=== PATIENT | male | born 1965 | race Caucasian/White ===

== ENCOUNTER 2024-04-22 15:29 | Observation (INO) ==
--- NOTE | 2024-04-22 16:01 | Emergency Department Note ---
Impression & Plan Nausea vomiting and diarrhea, Acute dehydration, Hypothermia, Bradycardia, Elevated [facility] ED Provider Note CHIEF COMPLAINT: Illness HISTORY OF PRESENTING ILLNESS: This 59-year-old male patient presents to the emergency department via EMS with his mother for evaluation of nausea, vomiting, and diaphoresis. Symptoms started around 12 or 1 pm today. He denies any chest pain, shortness of breath, or abdominal pain. He denies a headache, but does feel dizzy and confused. He was diaphoretic upon EMS arrival. The patient states that he just feels very strange all over. He states that he has not voided today. The patient feels like he is severely dehydrated. He states that he worked out at the gym for about 1 hour yesterday and did not drink a lot. He did have some diarrhea yesterday, but none today. The patient states that he ate some rice that had been in the fridge for at least 1 week that tasted bad and he is worried about food poisoning. No fevers, but has been sweating a lot. The patient recently traveled to [facility] to visit family. No known ill contacts. No known tick bites. He was also seen by a family doctor at the [facility] on 04/20/24 with a "full physical panel" performed that was normal per patient. The patient is in town visiting his mother. The patient's blood sugar upon arrival was 133. The patient's rectal temp upon arrival was 35.6 C. REVIEW OF SYSTEMS: See HPI for pertinent positives and pertinent negatives. ALLERGIES: NKDA MEDICATIONS: None PAST MEDICAL HISTORY: Denies pertinent past medical or pertinent past surgical history PHYSICAL EXAM: VITALS: Vitals are noted on the nurse's note and reviewed by myself. GENERAL: No acute distress, but the patient does appear ill. SKIN: No obvious abnormal rashes or skin lesions. The skin is not mottled. The skin is warm. He was not diaphoretic on my exam, but he appeared like he had been diaphoretic recently. He is slightly pale. Capillary reflex less than 2 seconds. HEAD: No scalp tenderness. No step-offs felt. EARS: Bilateral external auditory canals clear. Bilateral tympanic membranes pearly martinez without erythema or effusion. No hemotympanum. No yee sign. No mastoid tenderness. EYES: Pupils equal round and reactive to light and accommodation. Conjunctivae without injection, sclerae without icterus. Extraocular movements intact without pain. No nystagmus. NOSE: Patent, turbinates without inflammation or discharge. No sinus tenderness. No septal hematoma or bleeding. FACE: No facial bone tenderness. Full range of motion of the jaw without tenderness. No facial droop. MOUTH: Mucous membranes moist. Uvula midline. Airway patent. Tongue does not deviate. NECK: Supple without nuchal rigidity. Negative Kernig and Brudzinski. Cervical spine is nontender. Full range of motion of the neck without tenderness and normal strength. HEART: Regular rate and rhythm without murmurs gallops or rubs. LUNGS: Clear to auscultation bilaterally without wheezes, rales or rhonchi. No retractions or accessory muscle use. No chest wall tenderness. ABDOMEN: Positive bowel sounds x 4. Normal tympanic percussion. Soft, nontender, without masses or organomegaly. No guarding or rebound tenderness. No focal right lower quadrant or left lower quadrant tenderness. MUSCULOSKELETAL: No tenderness of the thoracic or lumbar spine or paraspinal muscles. Full range of motion of the bilateral upper and lower extremities. Strength 5/5 and equal bilaterally in the upper and lower extremities. Peripheral pulses 2+ and equal in the bilateral upper and lower extremities. NEURO: Patient was alert and oriented to person place and time, but he was slow to answer and seemed a bit off. However, I do not know his baseline. His mother states that he seems slower to answer than normal. The patient was able to answer questions appropriately and had a normal mental status exam despite the slowness to answer. No slurred speech. No trouble finding words. Normal sensation to light and sharp touch of the upper and lower extremities. DIFFERENTIAL DIAGNOSIS: Dehydration, rhabdomyolysis, acute kidney injury, sepsis, CVA, TIA, brain tumor, intracranial bleed, acute intracranial process, WA, PE, pneumonia, bowel obstruction, food poisoning, bacterial gastroenteritis, viral gastroenteritis, UTI, viral illness, or others. ED COURSE AND MEDICAL DECISION MAKING: HISTORY FROM INDEPENDENT HISTORIAN: Additional history was obtained from the patient's mother. MONITOR: Continuous air conditioning service technician: Order was placed for continuous air conditioning service technician. Patient was placed on the air conditioning service technician and continuous pulse ox. Patient was noted to be in normal sinus bradycardia at an initial rate of 55 bpm per my interpretation. EKG: EKG was interpreted by myself as sinus bradycardia at [address] with [address] acute [address] or T wave changes. MEDICATIONS GIVEN: 2 L normal saline solution bolus. Zofran 4 mg IV. INTERPRETATION OF LABS: I interpreted the labs with full lab results as below in the lab section of this note. [id number] glucose on arrival was 133. CBC without leukocytosis, anemia, or thrombocytopenia. Coags were normal. D-dimer was normal. Anion gap 13, glucose 164, and total bilirubin 1.2, but CMP otherwise normal. CPK normal. Lipase normal. Procalcitonin normal. Magnesium normal. TSH normal. Lactate was elevated at 3.0, but improved to 1.8 on repeat. High-sensitivity troponin x 2 were normal. Urinalysis with 3+ ketones, but no evidence for infection. Urine drug screen was positive for marijuana, but otherwise negative. Respiratory bio fire was negative. Lyme disease screen was negative. Anaplasma and Babesia smear were negative with DNA PCR still pending. Blood cultures are pending. INTERPRETATION OF IMAGING: Imaging studies were interpreted by myself and read by radiology as per the imaging section of this note. Chest x-ray is negative for pneumonia or other acute cardiopulmonary etiology. KUB was negative for bowel obstruction or other acute abnormalities. CT scan of the head without contrast was negative for acute intracranial abnormality. CONSULTATIONS: On-call hospitalist MDM SUMMARY: I examined the patient. The patient presented to the ER via ambulance for nausea, vomiting, and diaphoresis. The patient is also hypotensive and bradycardic. He was diaphoretic for EMS, but no longer diaphoretic in the ER. However, he does appear ill. [id number] glucose was 133. The patient is from out of town and visiting his mother. He did eat some questionable rice and had some diarrhea yesterday with vomiting today. The patient worked out at the gym yesterday and did not drink a lot of water and feels he is dehydrated from his workout, diarrhea, and vomiting. He denies any chest pain, shortness of breath, or abdominal pain. No fevers or URI symptoms. An IV lock was placed and labs were drawn. The patient was given 1 L normal saline solution bolus initially, but was given a second liter of normal saline solution bolus after his elevated lactate level and 3+ ketones in his urine were noted. He was given Zofran 4 mg IV with good improvement of his nausea and vomiting. He did not have a bowel movement while in the emergency department for stool sample. EKG showed sinus bradycardia, but no other acute abnormalities. High- sensitivity troponin x 2 were normal. D-dimer was normal. Chest x-ray and KUB were unremarkable. CT scan of the head without contrast was negative. Lactate was initially elevated at 3.0, but improved to 1.8 after the IV fluids. White blood cell count is normal and procalcitonin normal. Remainder of the laboratory studies as above without significant abnormalities. Respiratory bio fire was negative. Urine had 3+ ketones, but no evidence for infection. Tickborne testing negative so far with confirmatory testing pending. No source for infection on workup at this time so antibiotics were held. The patient did remain bradycardic and hypothermic and he required warmed IV fluids. His rectal temperature finally improved after the warmed IV fluids and his bradycardia resolved once he became normothermic. The patient's symptoms may be secondary to food poisoning from the questionable rice versus a viral/bacterial gastroenteritis given the vomiting and diarrhea. I suspect dehydration is playing a part in his symptoms as well. However, definitive cause has not been isolated at this time. The patient has been traveling out of the country recently. I had a meaningful discussion about this patient with Dr. Caro who agrees with my assessment and the treatment plan. Given the patient's presentation, elevated lactate level, bradycardia, and hypothermia, we feel the patient requires admission for further evaluation and treatment. I spoke with the on- call hospitalist who agreed to admit the patient for further management. Please refer to their dictation for further details. The patient's care was transferred in stable condition. DIAGNOSIS: Nausea, vomiting, and diarrhea Dehydration Hypothermia and bradycardia Elevated lactate Attending Attestation: I Jorge Caro MD I have reviewed the advanced practitioner's documentation and agree with the plan of care. I accept the responsibility for the associated risk of managing the patient. Past Med/Surg History Problem List (Updated 04/23/24 @ 00:28 by Beverly Meadows PA-C) Elevated [facility] (Acute) Bradycardia (Acute) Hypothermia (Acute) Acute dehydration (Acute) Nausea vomiting and diarrhea (Acute) Gastroenteritis Social History Smoking Status: Never smoker Hx Alcohol Use: Yes Alcohol type: beer Hx Substance Use: No Communication Ability: Effective Beliefs That Will Affect Care: None Current Living Situation: Alone Other Information That Helps Us Care for You: No Feels Safe at Home: Yes Safety Concerns: Feels Safe At This Time Assistive Devices: None Allergies Allergies Allergy/AdvReac Type Severity Reaction Status Date / Time No Known Allergies Allergy Verified 04/22/24 17:35 Home Meds Home Medications Medication Instructions Recorded Confirmed minoxidil 5 % topical solution 1 ml topical DIRECTED PRN 04/22/24 04/22/24 DIRECTED Results & Data (ED) Vital Signs Vital Signs - 24 hr 04/22/24 15:35 04/22/24 15:38 04/22/24 15:39 Temperature 35.6 C L Temperature Source Rectal Pulse Rate 56 L 54 L 62 Pulse Rate [Apical] Respiratory Rate 16 12 Respiratory Effort / Characteristics Non-Labored Spontaneous Respiratory Depth Normal Blood Pressure 130/87 130/87 Blood Pressure [Left Arm] Blood Pressure Mean 101 101 Blood Pressure Mean [Left Arm] Blood Pressure Position Sitting Pulse Oximetry 100 99 Oxygen Delivery Method Room Air Room Air Sepsis Recent Fever Within 48 Hours No Sepsis New/Unexplained Change in Mental Status N/A Sepsis Action Taken by Nursing No Action Required 04/22/24 17:00 04/22/24 17:26 04/22/24 18:08 Temperature 35.9 C L 35.9 C L Temperature Source Axillary Rectal Pulse Rate 48 L Pulse Rate [Apical] Respiratory Rate 16 Respiratory Effort / Characteristics Respiratory Depth Blood Pressure 126/76 Blood Pressure [Left Arm] Blood Pressure Mean 92 Blood Pressure Mean [Left Arm] Blood Pressure Position Pulse Oximetry 99 Oxygen Delivery Method Room Air Sepsis Recent Fever Within 48 Hours Sepsis New/Unexplained Change in Mental Status Sepsis Action Taken by Nursing 04/22/24 19:19 04/22/24 19:29 Temperature 36.8 C Temperature Source Oral Pulse Rate 68 Pulse Rate [Apical] 70 Respiratory Rate 19 Respiratory Effort / Characteristics Respiratory Depth Blood Pressure Blood Pressure [Left Arm] 119/79 Blood Pressure Mean Blood Pressure Mean [Left Arm] 92 Blood Pressure Position Pulse Oximetry 95 Oxygen Delivery Method Room Air Sepsis Recent Fever Within 48 Hours Sepsis New/Unexplained Change in Mental Status Sepsis Action Taken by Nursing Laboratory Data 04/23/24 05:31 04/23/24 05:31 Lab Results 04/22/24 04/22/24 04/22/24 Range/Units 15:37 15:45 16:18 WBC 9.17 (4.8-10.8) K/ul RBC 5.21 (4.70-6.10) M/uL Hgb 16.5 (14.0-18.0) g/dl Hct 47.1 (42.0-52.0) % MCV 90.4 (80.0-100.0) fL MCH 31.7 (25.0-34.0) pg MCHC 35.0 (32.0-36.0) g/dL RDW Std Deviation 41.2 (36.4-46.3) fL RDW Coeff of Danny 12.6 (11.5-14.5) % Plt Count 140 (130-400) K/uL MPV 11.9 (9.4-12.4) fL Immature Gran % (Auto) 0.4 % Neut % (Auto) 79.2 % Lymph % (Auto) 13.0 % Grayson % (Auto) 6.2 % Eos % (Auto) 1.0 % Baso % (Auto) 0.2 % Neut # (Auto) 7.26 H (1.40-6.50) K/uL Lymph # (Auto) 1.19 L (1.20-3.40) K/uL Grayson # (Auto) 0.57 (0.11-0.59) K/uL Eos # (Auto) 0.09 (0.00-0.50) K/uL Baso # (Auto) 0.02 (0.00-0.20) K/uL Immature Gran # (Auto) 0.04 (0.01-0.20) K/uL PT 10.6 (9.0-12.0) Seconds INR 1.0 (0.9-1.1) APTT 24 (21-31) Seconds PTT Ratio 0.9 D-Dimer 410 (0-500) ug/L FEU Sodium 138 (136-145) mmol/L Potassium 3.5 (3.5-5.1) mmol/L Chloride 103 (98-107) mmol/L Carbon Dioxide 22 (21-32) mmol/L Anion Gap 13 H (3-11) BUN 16 (6-23) mg/dl Creatinine 0.94 (0.6-1.4) mg/dl Est Cr Clr Drug Dosing 89.1 ml/min Est GFR ( Amer) 101.0 ml/min Est GFR (Non-Af Amer) 87.2 ml/min BUN/Creatinine Ratio 17.0 (10-20) Glucose 164 H (70-99(Fasting)) mg/dl POC Glucose 133 H (70-99) mg/dl Lactate (0.4-2.0) mmol/L Calcium 10.0 (8.6-10.3) mg/dl Magnesium 2.1 (1.7-2.4) mg/dl Total Bilirubin 1.2 H (0.2-1.0) mg/dl AST 18 (13-39) U/L ALT 19 (7-52) U/L Alkaline Phosphatase 69 (34-104) U/L Total Creatine Kinase 166 (30-223) U/L Troponin I High Sens 2.7 (0-20) pg/ml Total Protein 7.5 (6.0-8.3) gm/dl Albumin 4.8 (3.4-5.0) gm/dl Globulin 2.7 (2.5-4.0) gm/dl Albumin/Globulin Ratio 1.8 (0.9-2) Lipase 29 (11-82) U/L Procalcitonin < 0.02 (0-0.5) ng/ml TSH 1.759 (0.300-4.500) uIu/ml Urine Color Urine Appearance (Clear) Urine pH (4.5-7.5) Ur Specific Midway (1.000-1.030) Urine Protein (Negative) Urine Glucose (UA) (Negative) Urine Ketones (Negative) Urine Blood (Negative) Urine Nitrite (Negative) Urine Bilirubin (Negative) Urine Urobilinogen (Negative) Ur Leukocyte Esterase (Negative) Urine WBC (Auto) (0-5) /hpf Urine RBC (Auto) (0-2) /hpf U Hyaline Cast (Auto) (0-2) /lpf U Epithel Cells (Auto) (0-2) /hpf Urine Bacteria (Auto) (None Seen) Calcium Oxalate Crystal (None Prsent) Urine Opiates Screen (Neg) Ur Methadone, Qual (Neg) Urine Fentanyl Screen (Neg) Urine Barbiturates (Neg) Ur Phencyclidine (PCP) (Neg) U Amphetamin/Meth Scrn (Neg) MDMA (Ecstasy) Screen (Neg) U Benzodiazepines Scrn (Neg) Ur Cocaine Metabolite (Neg) U Marijuana (THC) Screen (Neg) Adenovirus (PCR) Not Detected (NotDetected) Anaplasma Smear See Comment Babesia Smear See Comment B. pertussis DNA (PCR) Not Detected (NotDetected) B.parapertussis DNA PCR Not Detected (NotDetected) Lyme Disease Screen Negative (Negative) C. pneumoniae DNA (PCR) Not Detected (NotDetected) Coronavirus OC43 (PCR) Not Detected (NotDetected) Coronavirus HKU1 (PCR) Not Detected (NotDetected) Coronavirus 229E (PCR) Not Detected (NotDetected) SARS-CoV-2 (PCR) Not Detected (NotDetected) Coronavirus NL63 (PCR) Not Detected (NotDetected) Human Metapneumovir PCR Not Detected (NotDetected) Influenza Type A (PCR) Not Detected (NotDetected) Influenza Type B (PCR) Not Detected (NotDetected) M. pneumoniae (PCR) Not Detected (NotDetected) Parainfluenza 1 (PCR) Not Detected (NotDetected) Parainfluenza 2 (PCR) Not Detected (NotDetected) Parainfluenza 3 (PCR) Not Detected (NotDetected) Parainfluenza 4 (PCR) Not Detected (NotDetected) RSV (PCR) Not Detected (NotDetected) Entero/Rhino (PCR) Not Detected (NotDetected) 04/22/24 04/22/24 04/22/24 Range/Units 16:41 18:19 18:24 WBC (4.8-10.8) K/ul RBC (4.70-6.10) M/uL Hgb (14.0-18.0) g/dl Hct (42.0-52.0) % MCV (80.0-100.0) fL MCH (25.0-34.0) pg MCHC (32.0-36.0) g/dL RDW Std Deviation (36.4-46.3) fL RDW Coeff of Danny (11.5-14.5) % Plt Count (130-400) K/uL MPV (9.4-12.4) fL Immature Gran % (Auto) % Neut % (Auto) % Lymph % (Auto) % Grayson % (Auto) % Eos % (Auto) % Baso % (Auto) % Neut # (Auto) (1.40-6.50) K/uL Lymph # (Auto) (1.20-3.40) K/uL Grayson # (Auto) (0.11-0.59) K/uL Eos # (Auto) (0.00-0.50) K/uL Baso # (Auto) (0.00-0.20) K/uL Immature Gran # (Auto) (0.01-0.20) K/uL PT (9.0-12.0) Seconds INR (0.9-1.1) APTT (21-31) Seconds PTT Ratio D-Dimer (0-500) ug/L FEU Sodium (136-145) mmol/L Potassium (3.5-5.1) mmol/L Chloride (98-107) mmol/L Carbon Dioxide (21-32) mmol/L Anion Gap (3-11) BUN (6-23) mg/dl Creatinine (0.6-1.4) mg/dl Est Cr Clr Drug Dosing ml/min Est GFR ( Amer) ml/min Est GFR (Non-Af Amer) ml/min BUN/Creatinine Ratio (10-20) Glucose (70-99(Fasting)) mg/dl POC Glucose (70-99) mg/dl Lactate 3.0 H* 1.8 (0.4-2.0) mmol/L Calcium (8.6-10.3) mg/dl Magnesium (1.7-2.4) mg/dl Total Bilirubin (0.2-1.0) mg/dl AST (13-39) U/L ALT (7-52) U/L Alkaline Phosphatase (34-104) U/L Total Creatine Kinase (30-223) U/L Troponin I High Sens 2.4 (0-20) pg/ml Total Protein (6.0-8.3) gm/dl Albumin (3.4-5.0) gm/dl Globulin (2.5-4.0) gm/dl Albumin/Globulin Ratio (0.9-2) Lipase (11-82) U/L Procalcitonin (0-0.5) ng/ml TSH (0.300-4.500) uIu/ml Urine Color Urine Appearance (Clear) Urine pH (4.5-7.5) Ur Specific Midway (1.000-1.030) Urine Protein (Negative) Urine Glucose (UA) (Negative) Urine Ketones (Negative) Urine Blood (Negative) Urine Nitrite (Negative) Urine Bilirubin (Negative) Urine Urobilinogen (Negative) Ur Leukocyte Esterase (Negative) Urine WBC (Auto) (0-5) /hpf Urine RBC (Auto) (0-2) /hpf U Hyaline Cast (Auto) (0-2) /lpf U Epithel Cells (Auto) (0-2) /hpf Urine Bacteria (Auto) (None Seen) Calcium Oxalate Crystal (None Prsent) Urine Opiates Screen (Neg) Ur Methadone, Qual (Neg) Urine Fentanyl Screen (Neg) Urine Barbiturates (Neg) Ur Phencyclidine (PCP) (Neg) U Amphetamin/Meth Scrn (Neg) MDMA (Ecstasy) Screen (Neg) U Benzodiazepines Scrn (Neg) Ur Cocaine Metabolite (Neg) U Marijuana (THC) Screen (Neg) Adenovirus (PCR) (NotDetected) Anaplasma Smear Babesia Smear B. pertussis DNA (PCR) (NotDetected) B.parapertussis DNA PCR (NotDetected) Lyme Disease Screen (Negative) C. pneumoniae DNA (PCR) (NotDetected) Coronavirus OC43 (PCR) (NotDetected) Coronavirus HKU1 (PCR) (NotDetected) Coronavirus 229E (PCR) (NotDetected) SARS-CoV-2 (PCR) (NotDetected) Coronavirus NL63 (PCR) (NotDetected) Human Metapneumovir PCR (NotDetected) Influenza Type A (PCR) (NotDetected) Influenza Type B (PCR) (NotDetected) M. pneumoniae (PCR) (NotDetected) Parainfluenza 1 (PCR) (NotDetected) Parainfluenza 2 (PCR) (NotDetected) Parainfluenza 3 (PCR) (NotDetected) Parainfluenza 4 (PCR) (NotDetected) RSV (PCR) (NotDetected) Entero/Rhino (PCR) (NotDetected) 04/22/24 Range/Units 18:50 WBC (4.8-10.8) K/ul RBC (4.70-6.10) M/uL Hgb (14.0-18.0) g/dl Hct (42.0-52.0) % MCV (80.0-100.0) fL MCH (25.0-34.0) pg MCHC (32.0-36.0) g/dL RDW Std Deviation (36.4-46.3) fL RDW Coeff of Danny (11.5-14.5) % Plt Count (130-400) K/uL MPV (9.4-12.4) fL Immature Gran % (Auto) % Neut % (Auto) % Lymph % (Auto) % Grayson % (Auto) % Eos % (Auto) % Baso % (Auto) % Neut # (Auto) (1.40-6.50) K/uL Lymph # (Auto) (1.20-3.40) K/uL Grayson # (Auto) (0.11-0.59) K/uL Eos # (Auto) (0.00-0.50) K/uL Baso # (Auto) (0.00-0.20) K/uL Immature Gran # (Auto) (0.01-0.20) K/uL PT (9.0-12.0) Seconds INR (0.9-1.1) APTT (21-31) Seconds PTT Ratio D-Dimer (0-500) ug/L FEU Sodium (136-145) mmol/L Potassium (3.5-5.1) mmol/L Chloride (98-107) mmol/L Carbon Dioxide (21-32) mmol/L Anion Gap (3-11) BUN (6-23) mg/dl Creatinine (0.6-1.4) mg/dl Est Cr Clr Drug Dosing ml/min Est GFR ( Amer) ml/min Est GFR (Non-Af Amer) ml/min BUN/Creatinine Ratio (10-20) Glucose (70-99(Fasting)) mg/dl POC Glucose (70-99) mg/dl Lactate (0.4-2.0) mmol/L Calcium (8.6-10.3) mg/dl Magnesium (1.7-2.4) mg/dl Total Bilirubin (0.2-1.0) mg/dl AST (13-39) U/L ALT (7-52) U/L Alkaline Phosphatase (34-104) U/L Total Creatine Kinase (30-223) U/L Troponin I High Sens (0-20) pg/ml Total Protein (6.0-8.3) gm/dl Albumin (3.4-5.0) gm/dl Globulin (2.5-4.0) gm/dl Albumin/Globulin Ratio (0.9-2) Lipase (11-82) U/L Procalcitonin (0-0.5) ng/ml TSH (0.300-4.500) uIu/ml Urine Color Yellow Urine Appearance Clear (Clear) Urine pH 6.5 (4.5-7.5) Ur Specific Midway 1.020 (1.000-1.030) Urine Protein Trace H (Negative) Urine Glucose (UA) Negative (Negative) Urine Ketones 3+ H (Negative) Urine Blood Negative (Negative) Urine Nitrite Negative (Negative) Urine Bilirubin Negative (Negative) Urine Urobilinogen Negative (Negative) Ur Leukocyte Esterase Negative (Negative) Urine WBC (Auto) 0-5 (0-5) /hpf Urine RBC (Auto) 0-2 (0-2) /hpf U Hyaline Cast (Auto) 0-2 (0-2) /lpf U Epithel Cells (Auto) 0-2 (0-2) /hpf Urine Bacteria (Auto) None Seen (None Seen) Calcium Oxalate Crystal Present A (None Prsent) Urine Opiates Screen Neg (Neg) Ur Methadone, Qual Neg (Neg) Urine Fentanyl Screen Neg (Neg) Urine Barbiturates Neg (Neg) Ur Phencyclidine (PCP) Neg (Neg) U Amphetamin/Meth Scrn Neg (Neg) MDMA (Ecstasy) Screen Neg (Neg) U Benzodiazepines Scrn Neg (Neg) Ur Cocaine Metabolite Neg (Neg) U Marijuana (THC) Screen Pos H (Neg) Adenovirus (PCR) (NotDetected) Anaplasma Smear Babesia Smear B. pertussis DNA (PCR) (NotDetected) B.parapertussis DNA PCR (NotDetected) Lyme Disease Screen (Negative) C. pneumoniae DNA (PCR) (NotDetected) Coronavirus OC43 (PCR) (NotDetected) Coronavirus HKU1 (PCR) (NotDetected) Coronavirus 229E (PCR) (NotDetected) SARS-CoV-2 (PCR) (NotDetected) Coronavirus NL63 (PCR) (NotDetected) Human Metapneumovir PCR (NotDetected) Influenza Type A (PCR) (NotDetected) Influenza Type B (PCR) (NotDetected) M. pneumoniae (PCR) (NotDetected) Parainfluenza 1 (PCR) (NotDetected) Parainfluenza 2 (PCR) (NotDetected) Parainfluenza 3 (PCR) (NotDetected) Parainfluenza 4 (PCR) (NotDetected) RSV (PCR) (NotDetected) Entero/Rhino (PCR) (NotDetected) Administered Medications Dextrose/Sodium Chloride (D5w And Nss) 1,000 mls @ 125 mls/hr IV .Q8H VANIA Stop: 05/23/24 00:53 Last Admin: 04/23/24 09:10 Dose: 125 mls/hr Documented By: Infusion: 04/23/24 09:10 Dose: Infused Documented By: Admin: 04/23/24 01:14 Dose: 125 mls/hr Documented By: OMAR Discontinued Medications Sodium Chloride (Nss) 1,000 mls @ 999 mls/hr IV .Q1H1M STA Stop: 04/22/24 17:12 Last Infusion: 04/22/24 17:52 Dose: Infused Documented By: Admin: 04/22/24 16:35 Dose: 999 mls/hr Documented By: CASSANDRA Sodium Chloride (Nss) 1,000 mls @ 999 mls/hr IV .Q1H1M ONE Stop: 04/22/24 17:50 Last Infusion: 04/22/24 19:17 Dose: Infused Documented By: Admin: 04/22/24 17:52 Dose: 999 mls/hr Documented By: MYESHA Ondansetron HCl (Ondansetron Inj 2 Mg/Ml 2 Ml Vial) 4 mg IV NOW STA Stop: 04/22/24 16:16 Last Admin: 04/22/24 16:35 Dose: 4 mg Documented By: CASSANDRA Imaging Data Radiologist's Impression: Chest X-Ray 04/22/24 16:12 XR chest 1V portable CLINICAL HISTORY: Chest pain, nonspecific COMPARISON STUDY: No previous studies for comparison. FINDINGS: Lung volumes are normal. Lungs are clear. There is no pneumothorax or pleural effusion. Cardiac size is normal. Mediastinal contours are normal. There is no evidence for pulmonary edema. IMPRESSION: No acute cardiopulmonary findings. ACT 112: Negative or not required by law. Electronically signed by: Terrance Lora M.D. 04/22/2024 5:[address] 04/22/24 16:12 CT OF THE HEAD WITHOUT CONTRAST CLINICAL HISTORY: Altered mental status. COMPARISON STUDY: No previous studies for comparison. CT DOSE: 547.75 mGy.cm TECHNIQUE: Helical axial images of the head were obtained without IV contrast. Automated exposure control was utilized for the study. A dose lowering technique was utilized adhering to the principles of ALARA. FINDINGS: No acute intracranial hemorrhage, midline shift or mass effect is present. The ventricular system is unremarkable. The basal cisterns are patent. No extra-axial collections are present. There are no findings to suggest acute dural sinus thrombosis or acute territorial infarct. No significant calvarial abnormalities are present. Visualized portions of the sinuses and mastoid air cells are clear. IMPRESSION: No acute intracranial findings. ACT 112: Negative or not required by law. Electronically signed by: Terrance Lora M.D. 04/22/2024 4:38 PM KUB X-Ray 04/22/24 16:12 KUB CLINICAL HISTORY: Evaluate for obstruction. COMPARISON STUDY: None. FINDINGS: The bowel gas pattern is normal. The amount of stool is within normal limits. No evidence for free air on supine exam. Right pelvic calcifications statistically reflects a phlebolith. IMPRESSION: No evidence for a bowel obstruction. ACT 112: Negative or not required by law. Electronically signed by: Terrance Lora M.D. 04/22/2024 5:30 PM Discharge Plan Visit Data Chief Complaint: Illness ED Provider: Jorge Caro ED Midlevel Provider: Beverly Meadows Discharge Problem: Nausea vomiting and diarrhea, Acute dehydration, Hypothermia, Bradycardia, Elevated LDH Patient Disposition: Admitted As Inpatient Condition: Good Discharge Instructions Interventions: ED Discharge Assessment Last Done: 04/23/24 00:56 Discharge Problem: Hypothermia Qualifiers: Encounter type: initial encounter Qualified Code(s): T68.XXXA - Hypothermia, initial encounter
[2024-04-22 16:34] LABS: Basophils # (auto) 0.02 K/uL (0.00-0.20); Basophils % (auto) 0.2 %; Eosinophils # (auto) 0.09 K/uL (0.00-0.50); Hematocrit (blood only) 47.1 % (42.0-52.0); Hemoglobin 16.5 g/dl (14.0-18.0); Immature Granulocytes # (auto) 0.04 K/uL (0.01-0.20); Immature Granulocytes % (auto) 0.4 %; Lymphocytes # (auto) 1.19 K/uL (1.20-3.40); Mean Corpuscular Hemoglobin 31.7 pg (25.0-34.0); Mean Corpuscular Volume 90.4 fL (80.0-100.0); Mean Platelet Volume 11.9 fL (9.4-12.4); Monocytes # (auto) 0.57 K/uL (0.11-0.59); Monocytes % (auto) 6.2 %; Neutrophils # (auto) 7.26 K/uL (1.40-6.50); Neutrophils % (auto) 79.2 %; Platelet Count 140 K/uL (130-400); RDW Coefficient of Variation 12.6 % (11.5-14.5); RDW Standard Deviation 41.2 fL (36.4-46.3); Red Blood Count 5.21 M/uL (4.70-6.10); White Blood Count 9.17 K/ul (4.8-10.8)
[2024-04-22] MEDS: ONDANSETRON INJ 2 MG/ML 2 ML VIAL IV STA (16:35)
[2024-04-22] MEDS: SODIUM CHLORIDE 0.9% 1,000 ML IV STA (16:35)
[2024-04-22 16:38] LABS: Albumin Globulin Ratio 1.8 (0.9-2); Albumin Level 4.8 gm/dl (3.4-5.0); Bilirubin,Total 1.2 mg/dl (0.2-1.0); Creatinine Clr Calc Pharmacy 89.1 ml/min; Est GFR (Non-African American) 87.2 ml/min; Globulin 2.7 gm/dl (2.5-4.0); Magnesium 2.1 mg/dl (1.7-2.4); Potassium 3.5 mmol/L (3.5-5.1); Total Protein 7.5 gm/dl (6.0-8.3)
--- NOTE | 2024-04-22 16:40 | CT Scan Report ---
CT OF THE HEAD WITHOUT CONTRAST CLINICAL HISTORY: Altered mental status. COMPARISON STUDY: No previous studies for comparison. CT DOSE: 547.75 mGy.cm TECHNIQUE: Helical axial images of the head were obtained without IV contrast. Automated exposure con trol was utilized for the study. A dose lowering technique was utilized adhering to the principles o f ALARA. FINDINGS: No acute intracranial hemorrhage, midline shift or mass effect is present. The ventricular system is unremarkable. The basal cisterns are patent. No extra-axial collections are present. There are no findings to suggest acute dural sinus thrombosis or acute territorial infarct. No significant calvarial abnormalities are present. Visualized portions of the sinuses and mastoid air cells are melisa ar. IMPRESSION: No acute intracranial findings. ACT 112: Negative or not required by law. Electronically signed by: Terrance Lora M.D. 04/22/2024 4:38 PM
[2024-04-22 16:44] LABS: Troponin I High Sensitivity 2.7 pg/ml (0-20)
[2024-04-22 16:53] LABS: Thyroid Stimulating Hormone 1.759 uIu/ml (0.300-4.500)
[2024-04-22 17:02] LABS: D Dimer 410 ug/L FEU (0-500); Partial Thromboplastin Ratio 0.9; Partial Thromboplastin Time 24 Seconds (21-31); Prothrombin Time 10.6 Seconds (9.0-12.0)
[2024-04-22 17:18] LABS: Adenovirus PCR Not Detected (NotDetected); Bordetella parapertussis PCR Not Detected (NotDetected); Bordetella pertussis PCR Not Detected (NotDetected); Chlamydia pneumoniae PCR Not Detected (NotDetected); Coronavirus 229E PCR Not Detected (NotDetected); Coronavirus CoV-2 (COVID19)PCR Not Detected (NotDetected); Coronavirus HKU1 PCR Not Detected (NotDetected); Coronavirus NL63 PCR Not Detected (NotDetected); Coronavirus OC43PCR Not Detected (NotDetected); Human Metapneumovirus PCR Not Detected (NotDetected); Influenza A PCR Not Detected (NotDetected); Influenza B PCR Not Detected (NotDetected); Mycoplasma pneumoniae PCR Not Detected (NotDetected); Parainfluenza Virus 1 PCR Not Detected (NotDetected); Parainfluenza Virus 2 PCR Not Detected (NotDetected); Parainfluenza Virus 3 PCR Not Detected (NotDetected); Parainfluenza Virus 4 PCR Not Detected (NotDetected); Respiratory Syncytial VirusPCR Not Detected (NotDetected); Rhinovirus/Enterovirus PCR Not Detected (NotDetected)
--- NOTE | 2024-04-22 17:25 | XRay Report ---
XR chest 1V portable CLINICAL HISTORY: Chest pain, nonspecific COMPARISON STUDY: No previous studies for comparison. FINDINGS: Lung volumes are normal. Lungs are clear. There is no pneumothorax or pleural effusion. Car diac size is normal. Mediastinal contours are normal. There is no evidence for pulmonary edema. IMPRESSION: No acute cardiopulmonary findings. ACT 112: Negative or not required by law. Electronically signed by: Terrance Lora M.D. 04/22/2024 5:23 PM
--- NOTE | 2024-04-22 17:31 | XRay Report ---
KUB CLINICAL HISTORY: Evaluate for obstruction. COMPARISON STUDY: None. FINDINGS: The bowel gas pattern is normal. The amount of stool is within normal limits. No evidence f or free air on supine exam. Right pelvic calcifications statistically reflects a phlebolith. IMPRESSION: No evidence for a bowel obstruction. ACT 112: Negative or not required by law. Electronically signed by: Terrance Lora M.D. 04/22/2024 5:30 PM
[2024-04-22] MEDS: SODIUM CHLORIDE 0.9% 1,000 ML IV ONE (17:52)
[2024-04-22 19:22] LABS: Appearance Urine Clear (Clear); Bacteria Urine Automated None Seen (None Seen); Bilirubin Urine Negative (Negative); Blood Urine Negative (Negative); Calcium Oxalate Crystals Urine Present (None Prsent); Cast Urine Automated 0-2 /lpf (0-2); Color Urine Yellow; Epithelial Cell Urine Auto 0-2 /hpf (0-2); Glucose Urine UA Negative (Negative); Ketones Urine 3+ (Negative); Leukocyte Esterase Urine Negative (Negative); Nitrite Urine Negative (Negative); Protein Urine Trace (Negative); RBC Urine Automated 0-2 /hpf (0-2); Urobilinogen Urine Negative (Negative); WBC Urine Automated 0-5 /hpf (0-5); pH Urine 6.5 (4.5-7.5)
[2024-04-22 19:47] LABS: Amphetamines+Metham, Urine Neg (Neg); Barbiturates, Urine Neg (Neg); Benzodiazepine, Urine Neg (Neg); Cocaine, Urine Neg (Neg); Fentanyl, Urine Neg (Neg); MDMA (Ecstacy), Urine Neg (Neg); Marijuana, Urine Pos (Neg); Methadone, Urine Neg (Neg); Opiate, Urine Neg (Neg); Phencyclidine, Urine Neg (Neg)
--- NOTE | 2024-04-22 21:38 | History & Physical Report ---
Date of Service April 22, 2024 Assessment & Plan (1) Gastroenteritis: Plan: 59-year-old male with past medical history significant for recurrent ear infections ,currently medications only on minoxidil topical for hair loss since 1 year presents with significant nausea ,vomiting and was very diaphoretic and in the ER he was hypothermic and bradycardic. [place] He came to visit his mother. They went to [place] and on the way back on last Tuesday he did a full physical at [facility]. He says he had echo, EKG and full physical and everything came back normal as per patient. Yesterday he went to [facility] gym and did 1 hour of exercise. He thinks he did not drink enough water. Today morning he woke up at 10 AM and he had the rice in the fridge which was old. Patient states rice was almost 2 weeks old ,there was no fungus or mold on it but it was some what smelling bad but cooked it thoroughly and ate it as per patient. Around 1 PM developed severe nausea vomiting and was very diaphoretic and was drenching in sweat. He was also confused. He was going around in the kitchen which he thought was weird. EMS was called and was brought in here. He had 1 episode of diarrhea yesterday. Today no bowel movement. And also did not micturate much today. In the ER when he came he was bradycardic and hypothermic. He was given 2 L of fluids,warm saline. Currently symptoms resolved. Currently no nausea. No abdominal pain. Currently hemodynamically stable. No confusion currently.Nausea improved and feeling hungry and wants to eat. Denies any fevers at home. Denies any chest pain. During the episode he thinks he was anxious and was feeling short of breath. And was also feeling dizzy. Dizziness improved. No headache. No blurred vision. No runny nose or sore throat. No cough. Denies any blood in the stools. Denies any rash. Denies any tick bites and thinks not exposed to ticks. Currently resting comfortably and hemodynamically stable. Gastroenteritis patient came with nausea, vomiting profuse diaphoresis hypothermia and bradycardia improved after warm fluids 2 L. Currently hypothermia bradycardia improved and nausea improved Seems symptoms started after eating old rice. Possible gastroenteritis. Possible dehydration from recent travels and workout in gym. Labs okay. Initial lactic acid 3 but repeat is 1.8. Total bilirubin 1.2 but AST ALT and alkaline phosphatase are okay. two sets of troponin negative. Total creatinine kinase 166. Procalcitonin negative. TSH is okay. UA is negative. Urine drug screen was positive marijuana screen and confirmation is pending. Respiratory bio fire negative. Anaplasma smear and Babesia smear negative. Lyme screen negative. Patient states recently he had a full physical workup and was negative. Will monitor in med/telemetry. IV fluids. Follow repeat labs in AM. DVT prophylaxis SCDs disposition med/telemetry full code. History of Present Illness Chief Complaint: Nausea vomiting mild hypokalemia Primary Care Provider: NO PCP 59-year-old male with past medical history significant for recurrent ear infections ,currently medications only on minoxidil topical for hair loss since 1 year presents with significant nausea ,vomiting and was very diaphoretic and in the ER he was hypothermic and bradycardic. Patient states he lives in [facility]. He came to visit his mother. They went to [place] and on the way back on last Tuesday he did a full physical at [facility]. He says he had echo, EKG and full physical and everything came back normal as per patient. Yesterday he went to [employer] gym and did 1 hour of exercise. He thinks he did not drink enough water. Today morning he woke up at 10 AM and he had the rice in the fridge which was old. Patient states rice was almost 2 weeks old ,there was no fungus or mold on it but it was some what smelling bad but cooked it thoroughly and ate it as per patient. Around 1 PM developed severe nausea vomiting and was very diaphoretic and was drenching in sweat. He was also confused. He was going around in the kitchen which he thought was weird. EMS was called and was brought in here. He had 1 episode of diarrhea yesterday. Today no bowel movement. And also did not micturate much today. In the ER when he came he was bradycardic and hypothermic. He was given 2 L of fluids,warm saline. Currently symptoms resolved. Currently no nausea. No abdominal pain. Currently hemodynamically stable. No confusion currently.Nausea improved and feeling hungry and wants to eat. Denies any fevers at home. Denies any chest pain. During the episode he thinks he was anxious and was feeling short of breath. And was also feeling dizzy. Dizziness improved. No headache. No blurred vision. No runny nose or sore throat. No cough. Denies any blood in the stools. Denies any rash. Denies any tick bites and thinks not exposed to ticks. Currently resting comfortably and hemodynamically stable. Past medical history. As mentioned above. Past surgical history. Removal of skin tag. Social history. Denies smoking. Alcohol social drinking. Denies any drug use. Family history. Mother had breast cancer. Atrial fibrillation. Allergies Allergy/AdvReac Type Severity Reaction Status Date / Time No Known Allergies Allergy Verified 04/22/24 17:35 Home Medications Medication Instructions Recorded Confirmed Type minoxidil 5 % topical solution 1 ml topical DIRECTED PRN 04/22/24 04/22/24 History DIRECTED Past Med/Surg History Problem List (Updated 04/23/24 @ 00:28 by Beverly Meadows PA-C) Elevated LDH (Acute) Bradycardia (Acute) Hypothermia (Acute) Acute dehydration (Acute) Nausea vomiting and diarrhea (Acute) Gastroenteritis Social History Smoking Status: Never smoker Hx Alcohol Use: Yes Alcohol type: beer Hx Substance Use: No Beliefs That Will Affect Care: None Current Living Situation: Alone Other Information That Helps Us Care for You: No Feels Safe at Home: Yes Safety Concerns: Feels Safe At This Time Assistive Devices: Glasses Review of Systems Review of Systems: All systems reviewed & are unremarkable except as noted in HPI & below Physical Exam Physical Exam: General-Not in acute distress. Head- atraumatic Eyes- PERRL. ENT- oropharynx clear Neck- supple, no JVD. Lungs- clear to auscultation no wheezing or crackles. Heart- regular rate and rhythm; no murmur, no gallop. Abdomen- normal bowel sounds, soft, nontender, no distension. Extremities- no pretibial edema, no erythema seen. Neuro- alert, oriented ; PERRL, EOMI; no facial palsy; no dysarthria; moves extremities. Results & Data Results & Data Vital Signs (Past 12 Hours) Vital Signs Temp Pulse Pulse Resp BP BP Pulse Ox 04/22/24 19:29 68 04/22/24 19:19 36.8 C 70 19 119/79 95 04/22/24 18:08 35.9 C L 04/22/24 17:26 35.9 C L 04/22/24 17:00 48 L 16 126/76 99 04/22/24 15:39 62 12 130/87 99 04/22/24 15:38 54 L 04/22/24 15:35 35.6 C L 56 L 16 130/87 100 O2 Del Method 04/22/24 19:29 04/22/24 19:19 Room Air 04/22/24 18:08 04/22/24 17:26 04/22/24 17:00 Room Air 04/22/24 15:39 Room Air 04/22/24 15:38 04/22/24 15:35 Room Air Diagnostic Findings Laboratory Results WBC 9.17 K/ul (4.8-10.8) 04/22/24 15:45 RBC 5.21 M/uL (4.70-6.10) 04/22/24 15:45 Hgb 16.5 g/dl (14.0-18.0) 04/22/24 15:45 Hct 47.1 % (42.0-52.0) 04/22/24 15:45 MCV 90.4 fL (80.0-100.0) 04/22/24 15:45 MCH 31.7 pg (25.0-34.0) 04/22/24 15:45 MCHC 35.0 g/dL (32.0-36.0) 04/22/24 15:45 RDW Std Deviation 41.2 fL (36.4-46.3) 04/22/24 15:45 RDW Coeff of Danny 12.6 % (11.5-14.5) 04/22/24 15:45 Plt Count 140 K/uL (130-400) 04/22/24 15:45 MPV 11.9 fL (9.4-12.4) 04/22/24 15:45 Immature Gran % (Auto) 0.4 % 04/22/24 15:45 Neut % (Auto) 79.2 % 04/22/24 15:45 Lymph % (Auto) 13.0 % 04/22/24 15:45 Shannon % (Auto) 6.2 % 04/22/24 15:45 Eos % (Auto) 1.0 % 04/22/24 15:45 Baso % (Auto) 0.2 % 04/22/24 15:45 Neut # (Auto) 7.26 K/uL (1.40-6.50) H 04/22/24 15:45 Lymph # (Auto) 1.19 K/uL (1.20-3.40) L 04/22/24 15:45 Shannon # (Auto) 0.57 K/uL (0.11-0.59) 04/22/24 15:45 Eos # (Auto) 0.09 K/uL (0.00-0.50) 04/22/24 15:45 Baso # (Auto) 0.02 K/uL (0.00-0.20) 04/22/24 15:45 Immature Gran # (Auto) 0.04 K/uL (0.01-0.20) 04/22/24 15:45 PT 10.6 Seconds (9.0-12.0) 04/22/24 15:45 INR 1.0 (0.9-1.1) 04/22/24 15:45 APTT 24 Seconds (21-31) 04/22/24 15:45 PTT Ratio 0.9 04/22/24 15:45 D-Dimer 410 ug/L FEU (0-500) 04/22/24 15:45 Sodium 138 mmol/L (136-145) 04/22/24 15:45 Potassium 3.5 mmol/L (3.5-5.1) 04/22/24 15:45 Chloride 103 mmol/L (98-107) 04/22/24 15:45 Carbon Dioxide 22 mmol/L (21-32) 04/22/24 15:45 Anion Gap 13 (3-11) H 04/22/24 15:45 BUN 16 mg/dl (6-23) 04/22/24 15:45 Creatinine 0.94 mg/dl (0.6-1.4) 04/22/24 15:45 Est Cr Clr Drug Dosing 89.1 ml/min 04/22/24 15:45 Est GFR ( Amer) 101.0 ml/min 04/22/24 15:45 Est GFR (Non-Af Amer) 87.2 ml/min 04/22/24 15:45 BUN/Creatinine Ratio 17.0 (10-20) 04/22/24 15:45 Glucose 164 mg/dl (70-99(Fasting)) H 04/22/24 15:45 POC Glucose 133 mg/dl (70-99) H 04/22/24 15:37 Lactate 1.8 mmol/L (0.4-2.0) 04/22/24 18:19 Calcium 10.0 mg/dl (8.6-10.3) 04/22/24 15:45 Magnesium 2.1 mg/dl (1.7-2.4) 04/22/24 15:45 Total Bilirubin 1.2 mg/dl (0.2-1.0) H 04/22/24 15:45 AST 18 U/L (13-39) 04/22/24 15:45 ALT 19 U/L (7-52) 04/22/24 15:45 Alkaline Phosphatase 69 U/L (34-104) 04/22/24 15:45 Total Creatine Kinase 166 U/L (30-223) 04/22/24 15:45 Troponin I High Sens 2.4 pg/ml (0-20) 04/22/24 18:24 Total Protein 7.5 gm/dl (6.0-8.3) 04/22/24 15:45 Albumin 4.8 gm/dl (3.4-5.0) 04/22/24 15:45 Globulin 2.7 gm/dl (2.5-4.0) 04/22/24 15:45 Albumin/Globulin Ratio 1.8 (0.9-2) 04/22/24 15:45 Lipase 29 U/L (11-82) 04/22/24 15:45 Procalcitonin < 0.02 ng/ml (0-0.5) 04/22/24 15:45 TSH 1.759 uIu/ml (0.300-4.500) 04/22/24 15:45 Urine Color Yellow 04/22/24 18:50 Urine Appearance Clear (Clear) 04/22/24 18:50 Urine pH 6.5 (4.5-7.5) 04/22/24 18:50 Ur Specific Yale 1.020 (1.000-1.030) 04/22/24 18:50 Urine Protein Trace (Negative) H 04/22/24 18:50 Urine Glucose (UA) Negative (Negative) 04/22/24 18:50 Urine Ketones 3+ (Negative) H 04/22/24 18:50 Urine Blood Negative (Negative) 04/22/24 18:50 Urine Nitrite Negative (Negative) 04/22/24 18:50 Urine Bilirubin Negative (Negative) 04/22/24 18:50 Urine Urobilinogen Negative (Negative) 04/22/24 18:50 Ur Leukocyte Esterase Negative (Negative) 04/22/24 18:50 Urine WBC (Auto) 0-5 /hpf (0-5) 04/22/24 18:50 Urine RBC (Auto) 0-2 /hpf (0-2) 04/22/24 18:50 U Hyaline Cast (Auto) 0-2 /lpf (0-2) 04/22/24 18:50 U Epithel Cells (Auto) 0-2 /hpf (0-2) 04/22/24 18:50 Urine Bacteria (Auto) None Seen (None Seen) 04/22/24 18:50 Calcium Oxalate Crystal Present (None Prsent) A 04/22/24 18:50 Urine Opiates Screen Neg (Neg) 04/22/24 18:50 Ur Methadone, Qual Neg (Neg) 04/22/24 18:50 Urine Fentanyl Screen Neg (Neg) 04/22/24 18:50 Urine Barbiturates Neg (Neg) 04/22/24 18:50 Ur Phencyclidine (PCP) Neg (Neg) 04/22/24 18:50 U Amphetamin/Meth Scrn Neg (Neg) 04/22/24 18:50 MDMA (Ecstasy) Screen Neg (Neg) 04/22/24 18:50 U Benzodiazepines Scrn Neg (Neg) 04/22/24 18:50 Ur Cocaine Metabolite Neg (Neg) 04/22/24 18:50 U Marijuana (THC) Screen Pos (Neg) H 04/22/24 18:50 Adenovirus (PCR) Not Detected (NotDetected) 04/22/24 16:18 Anaplasma Smear See Comment 04/22/24 15:45 Babesia Smear See Comment 04/22/24 15:45 B. pertussis DNA (PCR) Not Detected (NotDetected) 04/22/24 16:18 B.parapertussis DNA PCR Not Detected (NotDetected) 04/22/24 16:18 Lyme Disease Screen Negative (Negative) 04/22/24 15:45 C. pneumoniae DNA (PCR) Not Detected (NotDetected) 04/22/24 16:18 Coronavirus OC43 (PCR) Not Detected (NotDetected) 04/22/24 16:18 Coronavirus HKU1 (PCR) Not Detected (NotDetected) 04/22/24 16:18 Coronavirus 229E (PCR) Not Detected (NotDetected) 04/22/24 16:18 SARS-CoV-2 (PCR) Not Detected (NotDetected) 04/22/24 16:18 Coronavirus NL63 (PCR) Not Detected (NotDetected) 04/22/24 16:18 Human Metapneumovir PCR Not Detected (NotDetected) 04/22/24 16:18 Influenza Type A (PCR) Not Detected (NotDetected) 04/22/24 16:18 Influenza Type B (PCR) Not Detected (NotDetected) 04/22/24 16:18 M. pneumoniae (PCR) Not Detected (NotDetected) 04/22/24 16:18 Parainfluenza 1 (PCR) Not Detected (NotDetected) 04/22/24 16:18 Parainfluenza 2 (PCR) Not Detected (NotDetected) 04/22/24 16:18 Parainfluenza 3 (PCR) Not Detected (NotDetected) 04/22/24 16:18 Parainfluenza 4 (PCR) Not Detected (NotDetected) 04/22/24 16:18 RSV (PCR) Not Detected (NotDetected) 04/22/24 16:18 Entero/Rhino (PCR) Not Detected (NotDetected) 04/22/24 16:18 Impressions Chest X-Ray 04/22/24 16:12 XR chest 1V portable CLINICAL HISTORY: Chest pain, nonspecific COMPARISON STUDY: No previous studies for comparison. FINDINGS: Lung volumes are normal. Lungs are clear. There is no pneumothorax or pleural effusion. Cardiac size is normal. Mediastinal contours are normal. There is no evidence for pulmonary edema. IMPRESSION: No acute cardiopulmonary findings. ACT 112: Negative or not required by law. Electronically signed by: Terrance Lora M.D. 04/22/2024 5:[address] 04/22/24 16:12 CT OF THE HEAD WITHOUT CONTRAST CLINICAL HISTORY: Altered mental status. COMPARISON STUDY: No previous studies for comparison. CT DOSE: 547.75 mGy.cm TECHNIQUE: Helical axial images of the head were obtained without IV contrast. Automated exposure control was utilized for the study. A dose lowering technique was utilized adhering to the principles of ALARA. FINDINGS: No acute intracranial hemorrhage, midline shift or mass effect is present. The ventricular system is unremarkable. The basal cisterns are patent. No extra-axial collections are present. There are no findings to suggest acute dural sinus thrombosis or acute territorial infarct. No significant calvarial abnormalities are present. Visualized portions of the sinuses and mastoid air cells are clear. IMPRESSION: No acute intracranial findings. ACT 112: Negative or not required by law. Electronically signed by: Terrance Lora M.D. 04/22/2024 4:38 PM KUB X-Ray 04/22/24 16:12 KUB CLINICAL HISTORY: Evaluate for obstruction. COMPARISON STUDY: None. FINDINGS: The bowel gas pattern is normal. The amount of stool is within normal limits. No evidence for free air on supine exam. Right pelvic calcifications statistically reflects a phlebolith. IMPRESSION: No evidence for a bowel obstruction. ACT 112: Negative or not required by law. Electronically signed by: Terrance Lora M.D. 04/22/2024 5:30 PM ECG Additional Comments: ECG. Sinus bradycardia rate of 56. QTc 461. Code Status & VTE Plan VTE Prophylaxis Plan VTE Prophylaxis will be ordered: Yes
--- NOTE | 2024-04-22 22:51 | Electrocardiogram Report ---
Test Reason : Blood Pressure : / mmHG Vent. Rate : 056 BPM Atrial Rate : 056 BPM P-R Int : 178 ms QRS Dur : 090 ms QT Int : 478 ms P-R-T Axes : 038 020 019 degrees QTc Int : 461 ms Sinus bradycardia Otherwise normal ECG No previous ECGs available Confirmed by Guido Epps ([id number]) on 04/22/2024 10:50:56 PM Referred By: Confirmed By:Guiod Epps
[2024-04-23] MEDS ORDERED: ACETAMINOPHEN 325 MG TAB PO PRN (00:54)
[2024-04-23] MEDS ORDERED: NITROGLYCERIN SL 0.4 MG/TAB TAB SL PRN (00:54)
[2024-04-23] MEDS ORDERED: ONDANSETRON INJ 2 MG/ML 2 ML VIAL IV PRN (00:54)
[2024-04-23] MEDS: D5W AND NSS 1,000 ML IV SCH (01:14)
[2024-04-23 06:00] LABS: Basophils # (auto) 0.01 K/uL (0.00-0.20); Basophils % (auto) 0.1 %; Eosinophils % (auto) 1.4 %; Hematocrit (blood only) 40.6 % (42.0-52.0); Hemoglobin 13.7 g/dl (14.0-18.0); Immature Granulocytes # (auto) 0.02 K/uL (0.01-0.20); Immature Granulocytes % (auto) 0.3 %; Lymphocytes # (auto) 1.42 K/uL (1.20-3.40); Lymphocytes % (auto) 19.4 %; Mean Corpuscular Hemoglobin 31.5 pg (25.0-34.0); Mean Corpuscular Hgb Conc 33.7 g/dL (32.0-36.0); Mean Corpuscular Volume 93.3 fL (80.0-100.0); Mean Platelet Volume 11.5 fL (9.4-12.4); Monocytes # (auto) 0.59 K/uL (0.11-0.59); Monocytes % (auto) 8.1 %; Neutrophils # (auto) 5.18 K/uL (1.40-6.50); Neutrophils % (auto) 70.7 %; Platelet Count 128 K/uL (130-400); RDW Coefficient of Variation 12.8 % (11.5-14.5); RDW Standard Deviation 43.8 fL (36.4-46.3); Red Blood Count 4.35 M/uL (4.70-6.10); White Blood Count 7.32 K/ul (4.8-10.8)
[2024-04-23 06:23] LABS: Albumin Level 3.6 gm/dl (3.4-5.0); BUN Creatinine Ratio 16.9 (10-20); Bilirubin Direct 0.1 mg/dl (0-0.2); Bilirubin,Total 0.7 mg/dl (0.2-1.0); Calcium 7.8 mg/dl (8.6-10.3); Creatinine Clr Calc Pharmacy 108.1 ml/min; Est GFR (African American) 113.5 ml/min; Est GFR (Non-African American) 97.9 ml/min; Phosphorus 2.5 mg/dl (2.5-4.9); Potassium 3.6 mmol/L (3.5-5.1); Total Protein 5.6 gm/dl (6.0-8.3); Troponin I High Sensitivity 3.4 pg/ml (0-20)
--- NOTE | 2024-04-23 11:53 | Discharge Summary ---
Date of Service April 23, 2024 Admission HPI Per Admitting Provider 59-year-old male with past medical history significant for recurrent ear infections ,currently medications only on minoxidil topical for hair loss since 1 year presents with significant nausea ,vomiting and was very diaphoretic and in the ER he was hypothermic and bradycardic. [place] He came to visit his mother. They went to [place] and on the way back on last Tuesday he did a full physical at [facility]. He says he had echo, EKG and full physical and everything came back normal as per patient. Yesterday he went to [employer] and did 1 hour of exercise. He thinks he did not drink enough water. Today morning he woke up at 10 AM and he had the rice in the fridge which was old. Patient states rice was almost 2 weeks old ,there was no fungus or mold on it but it was some what smelling bad but cooked it thoroughly and ate it as per patient. Around 1 PM developed severe nausea vomiting and was very diaphoretic and was drenching in sweat. He was also confused. He was going around in the kitchen which he thought was weird. EMS was called and was brought in here. He had 1 episode of diarrhea yesterday. Today no bowel movement. And also did not micturate much today. In the ER when he came he was bradycardic and hypothermic. He was given 2 L of fluids,warm saline. Currently symptoms resolved. Currently no nausea. No abdominal pain. Currently hemodynamically stable. No confusion currently.Nausea improved and feeling hungry and wants to eat. Denies any fevers at home. Denies any chest pain. During the episode he thinks he was anxious and was feeling short of breath. And was also feeling dizzy. Dizziness improved. No headache. No blurred vision. No runny nose or sore throat. No cough. Denies any blood in the stools. Denies any rash. Denies any tick bites and thinks not exposed to ticks. Currently resting comfortably and hemodynamically stable. Past medical history. As mentioned above. Past surgical history. Removal of skin tag. Social history. Denies smoking. Alcohol social drinking. Denies any drug use. Family history. Mother had breast cancer. Atrial fibrillation. Admission Exam Per Admitting Provider General-Not in acute distress. Head- atraumatic Eyes- PERRL. ENT- oropharynx clear Neck- supple, no JVD. Lungs- clear to auscultation no wheezing or crackles. Heart- regular rate and rhythm; no murmur, no gallop. Abdomen- normal bowel sounds, soft, nontender, no distension. Extremities- no pretibial edema, no erythema seen. Neuro- alert, oriented ; PERRL, EOMI; no facial palsy; no dysarthria; moves extremities. Principal Diagnosis Gastroenteritis Discharge Exam General-Not in acute distress. Head- atraumatic Eyes- PERRL. ENT- oropharynx clear Neck- supple, no JVD. Lungs- clear to auscultation no wheezing or crackles. Heart- regular rate and rhythm; no murmur, no gallop. Abdomen- normal bowel sounds, soft, nontender, no distension. Extremities- no pretibial edema, no erythema seen. Neuro- alert, oriented ; PERRL, EOMI; no facial palsy; no dysarthria; moves extremities. Discharge Data Allergies Allergy/AdvReac Type Severity Reaction Status Date / Time No Known Allergies Allergy Verified 04/22/24 17:35 Consultations 04/22/24 19:29 ED Decision to Admit Stat Ordered Studies 04/22/24 16:12 CT head/brain wo con Stat Hospital Course (1) Gastroenteritis: Per prior attending with addendum: 59-year-old male with past medical history significant for recurrent ear infections ,currently medications only on minoxidil topical for hair loss since 1 year presents with significant nausea ,vomiting and was very diaphoretic and in the ER he was hypothermic and bradycardic. Patient states he lives in [facility] [place]. He came to visit his mother. They went to [place] and on the way back on last Tuesday he did a full physical at [facility]. He says he had echo, EKG and full physical and everything came back normal as per patient. Yesterday he went to [employer] and did 1 hour of exercise. He thinks he did not drink enough water. Today morning he woke up at 10 AM and he had the rice in the fridge which was old. Patient states rice was almost 2 weeks old ,there was no fungus or mold on it but it was some what smelling bad but cooked it thoroughly and ate it as per patient. Around 1 PM developed severe nausea vomiting and was very diaphoretic and was drenching in sweat. He was also confused. He was going around in the kitchen which he thought was weird. EMS was called and was brought in here. He had 1 episode of diarrhea yesterday. Today no bowel movement. And also did not micturate much today. In the ER when he came he was bradycardic and hypothermic. He was given 2 L of fluids,warm saline. Currently symptoms resolved. Currently no nausea. No abdominal pain. Currently hemodynamically stable. No confusion currently.Nausea improved and feeling hungry and wants to eat. Denies any fevers at home. Denies any chest pain. During the episode he thinks he was anxious and was feeling short of breath. And was also feeling dizzy. Dizziness improved. No headache. No b lurred vision. No runny nose or sore throat. No cough. Denies any blood in the stools. Denies any rash. Denies any tick bites and thinks not exposed to ticks. Currently resting comfortably and hemodynamically stable. Gastroenteritis patient came with nausea, vomiting profuse diaphoresis hypothermia and bradycardia improved after warm fluids 2 L. Currently hypothermia bradycardia improved and nausea improved Seems symptoms started after eating old rice. Possible gastroenteritis. Possible dehydration from recent travels and workout in gym. Labs okay. Initial lactic acid 3 but repeat is 1.8. Total bilirubin 1.2 but AST ALT and alkaline phosphatase are okay. two sets of troponin negative. Total creatinine kinase 166. Procalcitonin negative. TSH is okay. UA is negative. Urine drug screen was positive marijuana screen and confirmation is pending. Respiratory bio fire negative. Anaplasma smear and Babesia smear negative. Lyme screen negative. Patient states recently he had a full physical workup and was negative. Will monitor in med/telemetry. IV fluids. Follow repeat labs in AM. DVT prophylaxis SCDs disposition med/telemetry full code. Addendum 04/23/2024: Patient was seen and examined at bedside as a follow-up of gastroenteritis. Patient receiving IV fluid, patient reports feeling completely back to his baseline. Patient is moving around in the room without any problem. Patient denies further nausea, vomiting, diarrhea. Patient has been afebrile and is hemodynamically stable. Patient does not want to stay today, would like to go home. Patient agreeable to stay until 4 PM for observation purpose. Patient will continue IV fluid until 4 PM and discharged at that point if no new medical issues. Labs and imaging reviewed, fairly wnl. He is being discharged with following instruction at the point of discharge: Follow-up with your primary care physician within a week time and likely you will need labs CBC/CMP/magnesium/phosphorus. Take your medications as prescribed. Please make sure that you are able to get your medications today by calling your pharmacy before you leave the hospital so that your treatment continuity is not broken. Home Health Attestation I certify that this patient is under my care and that I, or a physicians assistant professor of economics working with me, had a face to-face encounter that meets the home health [id number] encounter requirements with this patient. The encounter with the patient was in whole, or in part, for the following medical condition, which is the primary reason for home health care (list medical condition): I certify that, based on my findings, the following services are medically necessary home health services: My clinical findings support the need for the above services because: Further, I certify that my clinical findings support that this patient is homebound (i.e. absences from home require considerable and taxing effort and are for medical reasons or adventism services or infrequently or of short duration when for other reasons) because: Certification for Home Health Services: Based on the above findings, I certify that this patient is confined to the home and needs intermittent custodial care, physical therapy and/or speech therapy or continues to need occupational therapy. The patient is under my care, and I have initiated the establishment of the plan of care. This patient will be followed by a physician who will periodically review the plan of care. Total Time Total Time Spent Total Time Spent (In Minutes): 45 Discharge Plan Discharge Items Patient Disposition: Home - Self-Care Reason For Visit: N/V, HYPOTHERMIA Discharge Diagnosis: Gastroenteritis Condition on Discharge: Good Activity: Resume your previous activity Non-emergency contact: Primary Care Provider Call non-emergency contact if: you have any medication questions and your symptoms worsen Follow-up/Referrals: PCP,NO [Primary Care Provider] - Diet: Heart Healthy Addtl Attending Provider Instructions: Follow-up with your primary care physician within a week time and likely you will need labs CBC/CMP/magnesium/phosphorus. Take your medications as prescribed. Please make sure that you are able to get your medications today by calling your pharmacy before you leave the hospital so that your treatment continuity is not broken. Pending Studies at Discharge: Yes Stand-Alone Forms: My [facility], Smoking Cessation Medications and DC Order Prescriptions: Continued minoxidil 5 % Solution 1 ml TOPICAL DIRECTED PRN (Reason: DIRECTED) Discharge Orders: Discharge Order (Routine); Ordered 04/23/24 Ordered By: Jodee Emanuel Admission Data Admit Date/Time: 04/22/24 21:33 Attending Provider: Jodee Emanuel Admit Provider: Logan Castillo Primary Care Provider: PCP,NO Other Providers: Logan Castillo
[2024-04-25 13:17] LABS: Marijuana Quant, GCMS Urine 65 ng/mL (<5)
[2024-04-26 16:07] LABS: Babesia microti DNA Not Detected (Not Detected)
== END 2024-04-23 16:04 | disposition home or self-care (01) ==
LOC: ED 15:29 → 2W 15:29
DX: K52.9 Noninfective gastroenteritis and colitis, unspecified